=== PATIENT | male | born 1985 | race Caucasian/White ===

== ENCOUNTER 2022-05-29 19:24 | Emergency (ER) | payer SELFPAY ==
[~2022-05-29] VITALS: Ht 177.8 cm; Wt 80.0 kg
[2022-05-29 19:33] VITALS: BP 119/79
[2022-05-29] MEDS ORDERED: HALOPERIDOL LACTATE 5MG/ML VIAL IM ONE (20:15)
[2022-05-29] MEDS ORDERED: SODIUM CHLORIDE 0.9% 1,000 ML IV ONE (20:15)
[2022-05-29 20:42] LABS: HEMOGLOBIN. 14.4 g/dL (14.0-18.0); MEAN CORPUSCULAR HEMOGLOBIN 31.1 pg (28.0-32.0); MEAN CORPUSCULAR VOLUME 92.7 fL (80.0-94.0); MEAN PLATELET VOLUME 7.3 fl (7.4-10.4); PLATELET 186 x1000/uL (130-400); RED BLOOD CELL COUNT 4.64 mill/uL (4.7-6.1); RED CELL DISTRIBUTION WIDTH 13.1 % (11.6-14.6)
[2022-05-29 20:43] LABS: CHLORIDE 106 mEq/L (98-107)
[2022-05-29 21:18] LABS: PLATELET ESTIMATE NORMAL
[2022-05-29] MEDS ORDERED: ONDA4TAB11 PO (23:43)
== END 2022-05-30 00:26 | disposition home or self-care (01) ==
LOC: ER 19:24
DX: F12.188 Cannabis abuse with other cannabis-induced disorder (principal); Z88.0 Allergy status to penicillin
CPT/HCPCS: 36415; 80053; 83690; 85025; 96360; 96361; 96372; 99283; J1630; J7030